=== PATIENT | male | born 1990 | race Caucasian/White ===

== ENCOUNTER 2016-11-27 18:20 | Emergency (ER) | payer BC, SELFPAY ==
[2016-11-27] MEDS ORDERED: LORazepam 2 MG/ML MDV ONE (18:31)
[2016-11-27 18:52] LABS: CHLORIDE,CL 102 mmol/L (98-107); SODIUM,NA 139 mmol/L (136-145)
--- NOTE | 2016-11-27 19:16 | EDM.PDOC ---
ED HPI SEIZURE COMPLAINT - General Chief Complaint: Neurological Problem Stated Complaint: seizure activity Time Seen by Provider: 11/27/16 18:31 Source of Information: Reports: EMS, Family History Limitations: Reports: Altered mental status - History of Present Illness INITIAL COMMENTS - FREE TEXT/NARRATIVE: Patient noted by to have generalized tonic/clonic seizure by description. History of one prior seizure a few years ago after alcohol intoxication and sleep deprivation. No recurrence since then per . Not placed on medication for it. Is on medications for bipolar/Schizophrenia. Once patient was arousable he denied any recent changes in medications or supplements. No reported drug use but says she was gone from home to [employer] from yesterday until 4pm this afternoon. She says patient has been clean of Meth for 6 years but she watches him closely to help avoid relapse. She also mentioned that he complained he had not felt well earlier this afternoon and had one episode of emesis. No other problems mentioned by patient to . She thinks first seizure lasted around 5 minutes. Patient turned dusky, jaw clenched. She turned him on his side. She contacted EMS. EMS crew arrived and between arrival to home and subsequently hospital they noted 10 separate seizure-like events. No lower body movement noted with seizures. They described eyelid fluttering, eyes rolling back into head, head turned to side, tight neck/upper back/upper arms during events. Each one lasted around 1 minute. Patient became verbal at one point and could recall his name and 's name but not names of children. He was confused/post-ictal otherwise. No reported incontinence but jeans appeared a little damp when staff cut them off. - Related Data Allergies/ADRs: Allergies Allergy/AdvReac Type Severity Reaction Status Date / Time No Known Allergies Allergy Verified 08/04/16 11:55 Home Meds: Home Meds Thiothixene 10 mg PO BEDTIME 08/19/14 [History] LORazepam [Ativan] 4 mg PO BID #60 tablet 08/20/14 [Rx] LORazepam [Ativan] 6 mg PO BEDTIME #21 tablet 08/20/14 [Rx] Benztropine [Cogentin] 2 mg PO BEDTIME 08/04/16 [History] Ranitidine HCl [Ranitidine] 1 tab PO DAILY 08/04/16 [History] Past Medical History HEENT History: Reports: None Cardiovascular History: Reports: Arrhythmia, Hypertension, Other (see below) Other Cardiovascular History: Unknown type of arrhythmia with sinus arrhythmia by hospital records, or tension secondary to anxiety with no current antihypertensive medications Respiratory History: Reports: None, Croup, Other (see below) Other Respiratory History: Croup as a child Gastrointestinal History: Reports: Bowel obstruction, Gastritis, PUD, Other ( see below). Denies: Helicobacter pylori Other Gastrointestinal History: Small bowel obstruction requiring hospitalization, gastric ulcers at about age 19 with no known previous H. pylori infection Genitourinary History: Reports: Renal calculus, Other (see below) Other Genitourinary History: Right-sided urolithiasis at age 14 with spontaneous passage Musculoskeletal History: Reports: Back pain, chronic, Fracture, Osteoarthritis, Other (see below) Other Musculoskeletal History: Chronic low back pain with no previous injury, proximal phalangeal fracture of digit #5 of the left hand on 06/29/04 Neurological History: Reports: Seizure, Other (see below) Other Neuro History: Grand mal seizure disorder exacerbated by sleep deprivation initially diagnosed in this facility on 08/19/14 with subsequent neurological consultation in [place] by history Psychiatric History: Reports: Addiction, Anxiety, Bipolar, Depression, Schizophrenia, Suicidal ideation, Other (see below). 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 Previous chronic Ultram use with current chronic Ativan use , tobacco addiction, schizoaffective disorder Endocrine/Metabolic History: Reports: Hypothyroidism Hematologic History: Reports: None Immunologic History: Reports: None Oncologic (Cancer) History: Reports: None Dermatologic History: Reports: None - Infectious Disease History Infectious Disease History: Reports: None. Denies: C-difficile, Chicken pox, VRE - Past Surgical History Head Surgeries/Procedures: Reports: None HEENT Surgical History: Reports: Oral surgery, Other (see below) Other HEENT Surgeries/Procedures: [place] teeth extraction at age 12 GI Surgical History: Reports: Bariatric procedure, Cholecystectomy, Hernia, abdominal, Other (see below) Other GI Surgeries/Procedures: Gastric bypass surgery at age 12 on 09/10/02, cholecystectomy concomitant with gastric bypass as above Musculoskeletal Surgical History: Reports: Other (see below) Other Musculoskeletal Surgeries/Procedures:: Tendon repair of digit #4 of the left hand at age 14 - Past Imaging History Past Imaging History: Reports: CAT scan (CT of the head on 08/19/[address] of the head and facial region on 07/29/13, CT of the abdomen and pelvis on 12/03/10), EEG (August 19, 2014 with results not in our records), MRI (MRI of the brain on 09/18/02, MRI of the lumbar region on 02/09/11) - History Comment History Comment: History of argon poisoning from welding? Social & Family History - Family History Cardiac: Reports: CAD, Hypertension, VA, Other (see below) Other Cardiac Family History: Maternal great grandfather with fatal VA in his 70s, maternal uncles x2 with fatal VA in her 40s to 50s, hypertension in paternal grandmother Respiratory: Reports: COPD, Other (see below) Other Respiratory Family Hisory: Paternal great-grandfather with black lung secondary to work in the [employer] : Reports: Renal calculus, Other (see below) Other Family History: Nephrolithiasis in maternal grandfather and mother Musculoskeletal: Reports: Osteoarthritis, Other (see below) Other Musculoskeletal Family History: Mother with osteoarthritis Neurological: Reports: CVA, Seizure, Other (see below) Other Neurological Family History: Sister with grand mal seizures initially at age 19, CVA in maternal great-grandmother and great-grandfather, sister with autism Psychiatric: Reports: Anxiety, Depression, Schizophrenia, Suicide attempt, Other (see below) Other Psychiatric Family History: Anxiety depression disorder in mother, maternal uncle who also has schizophrenia with successful suicide at age 33, maternal grandparents with depression and anxiety Endocrine/Metabolic: Reports: Diabetes, type I, Hypothyroidism, IDDM, Other ( see below) Other Endocrine/Metabolic Family History: Sister with type I IDDM at age 9, maternal grandfather with AODM, mother with hypothyroidism Hematologic: Reports: Anemia, Other (see below) Other Hematologic Family History: Mother with chronic anemia of unknown type Oncologic: Reports: Breast, Leukemia, Skin, Other (see below) Other Oncologic Family History: Breast cancer x3 in maternal grandmother's side , CLL in maternal grandmother in her 70s, maternal aunt with unknown type of skin cancer in her 60s, maternal second cousin with melanoma at age 25 - Tobacco Use Smoking Status *Q: Current Every Day Smoker Years of Tobacco use: 15 Packs/Tins Daily: 1 Used Tobacco, but Quit: No Second Hand Smoke Exposure: Yes - Caffeine Use Caffeine Use: Reports: Soda Caffeine Use Comment: two 20 ounce bottles of Mountain Dew per day - Alcohol Use Days Per Week of Alcohol Use: 2 Number of Drinks Per Day: 2 Total Drinks Per Week: 4 - Recreational Drug Use Recreational Drug Use: Yes Drug Use in Last 12 Months: No Recreational Drug Type: Reports: Marijuana/Hashish (Current use unknown), Methamphetamine (Methamphetamine use for about 6 months in the past) Recreational Drug Use Frequency: Not Used In Over 1 Year (As above) Recreational Drug Last Use: MARIJUANA - Sexual History Sexual History: Reports: Sexually active - Living Situation & Occupation Living situation: Reports: (2011, 2 children), with family Occupation: employed ([employer]) ED ROS GENERAL - Review of Systems Review Of Systems: Unable To Obtain - Physical Exam Exam: See Below Exam Limited By: Altered mental status General Appearance: obtunded Eye Exam: bilateral eye: EOMI, PERRL (slightly increased pupil size noted, around 8-9mm that reacted down to 5-6mm with light) Ears: normal external exam, normal canal, normal TMs Nose: No: no blood, nasal tenderness, nasal deformity, nasal swelling, nasal drainage Throat/Mouth: Normal lips, No airway compromise Head Exam: atraumatic, normocephalic Neck: normal inspection, supple, non-tender, full range of motion. No: lymphadenopathy (L), lymphadenopathy (R) Respiratory/Chest: no respiratory distress, lungs clear, normal breath sounds, no accessory muscle use, chest non-tender Cardiovascular: normal peripheral pulses, regular rate, rhythm, no edema, no murmur GI/Abdominal: normal bowel sounds, soft, non tender, no distention, no abnormal bruit (Male) Exam: Normal inspection Rectal (Males) Exam: Deferred Neuro Exam (Abbreviated): normal reflexes, confused, slow to respond, memory loss recent events, other (Patient initially GCS score of 4. Ultimately became more lucid. Knew he was at [facility]. Knew president. Not able to recall day/month/year) DTR: 2+: bicep (R), bicep (L), patella (R), patella (L) Back Exam: normal inspection Extremities: normal inspection, non-tender, no pedal edema, normal capillary refill Psychiatric: flat affect Skin Exam: Warm, Intact, Normal color, No rash Course - Orders/Labs/Meds Orders: Active Orders 24 hr Category Date Time Status DRUG SCREEN, URINE [URCHEM] Stat Lab 11/27/16 18:32 Uncollected UA W/MICROSCOPIC [URIN] Stat Lab 11/27/16 18:31 Uncollected Labs: Laboratory Tests 11/27/16 11/27/16 11/27/16 Range/Units 18:20 18:20 18:20 WBC 8.8 (4.0-10.2) K/uL RBC 4.74 (4.33-5.41) M/uL Hgb 14.6 (13.1-16.8) g/dL Hct 44.4 (39.0-49.0) % MCV 93.7 (84.0-98.0) fL MCH 30.8 (28.2-33.3) pg MCHC 32.9 (31.7-36.0) g/dL RDW 13.5 (11.2-14.1) % Plt Count 353 H D (150-350) K/uL Neut % (Auto) 75.8 (45.0-80.0) % Lymph % (Auto) 12.8 (10.0-50.0) % [place] % (Auto) 10.1 (2.0-14.0) % Eos % (Auto) 0.8 (0.0-5.0) % Baso % (Auto) 0.5 (0.0-2.0) % Neut # 6.65 (1.40-7.00) K/uL Lymph # 1.12 (0.50-3.50) K/uL [place] # 0.89 (0.00-1.00) K/uL Eos # 0.07 (0.00-0.50) K/uL Baso # 0.04 (0.00-0.20) K/uL Sodium 139 (136-145) mmol/L Potassium 3.9 (3.5-5.1) mmol/L Chloride 102 (98-107) mmol/L Carbon Dioxide 21.9 (21.0-32.0) mmol/L BUN 5 L (7-18) mg/dL Creatinine 0.80 (0.51-1.17) mg/dL Est Cr Clr Drug Dosing TNP Estimated GFR (MDRD) > 60 mL/min Glucose 133 H (74-106) mg/dL Lactic Acid 5.3 H (0.4-2.0) mmol/L Calcium 9.1 (8.5-10.1) mg/dL Total Bilirubin 0.7 (0.2-1.0) mg/dL AST 17 (15-37) U/L ALT 23 (12-78) U/L Alkaline Phosphatase 77 (46-116) IU/L Total Protein 7.3 (6.4-8.2) g/dL Albumin 4.0 (3.4-5.0) g/dL Ethyl Alcohol 0.001 (0.000-0.080) g/dL Meds: Medications Discontinued Medications Generic Name Dose Route Start Last Admin Trade Name Anel PRN Reason Stop Dose Admin Lorazepam Confirm 11/27/16 18:31 11/27/16 18:33 Ativan Administered 11/27/16 18:32 2 mg Dose Administration 2 mg .ROUTE .STK-MED ONE - Re-Assessments/Exams Free Text/Narrative Re-Assessment/Exam: 11/27/16 19:20 CBC/ETOH/Chem/Lactic Acid ordered. Lactic Acid elevated at 5. Unable to obtain UA even with [place] attempt. IV NS bolus ordered. Ativan 2mg given. Patient appeared to improve within 5-10 minutes of Ativan. He knew he was in [place] [facility] but was still somewhat confused. He did not recall any change in routine/health/meds/supplements when questioned at this point. Denied any illicit drug use. Denied pain or discomfort. Vital signs stable. Appeared comfortable. No additional seizure activity noted during rest of stay. At this point in time [facility] contacted and they accepted the patient for additional workup. Patient was transferred prior to obtaining UA for drug screen. Another patient in the ER was also in need of transfer which meant a three+ hour delay in transferring this patient for additional evaluation by Neurology given his prolonged complex seizure course if we waited until the crew returned from the other transfer. This patient was felt to have higher priority for higher level of care and we wished for him to be transferred first. [facility] agreed with this and accepted the patient. Departure - Departure Time of Disposition: 19:15 Disposition: DC/Tfer to Acute Hospital 02 Clinical Impression: Seizure disorder Forms: ED Department Discharge - My Orders Last 24 Hours: My Active Orders 11/27/16 18:31 UA W/MICROSCOPIC [URIN] Stat 11/27/16 18:32 DRUG SCREEN, URINE [URCHEM] Stat - Assessment/Plan Last 24 Hours: My Active Orders 11/27/16 18:31 UA W/MICROSCOPIC [URIN] Stat 11/27/16 18:32 DRUG SCREEN, URINE [URCHEM] Stat
== END 2016-11-27 19:12 ==
LOC: LL.ED 18:20
DX: G40.909 Epilepsy, unspecified, not intractable, without status epilepticus (principal); E03.9 Hypothyroidism, unspecified; I10 Essential (primary) hypertension; F17.210 Nicotine dependence, cigarettes, uncomplicated; Z79.899 Other long term (current) drug therapy
CPT/HCPCS: 36415; 80053; 83605; 85025; 96361; 96374; 99285; G0480; J2060

== ENCOUNTER 2016-12-03 15:22 | Emergency (ER) | payer BC, SELFPAY ==
[2016-12-03 15:25] VITALS: BP 138/101
[2016-12-03] MEDS ORDERED: predniSONE 20 MG Tab PO ONE (16:07)
[2016-12-03] MEDS ORDERED: methylPREDNISolone Sodium Succinate 125 MG/2 ML SDV IM ONE (16:07)
[2016-12-03] MEDS ORDERED: Ketorolac 60 MG/2 ML SDV IM ONE (16:13)
--- NOTE | 2016-12-03 16:13 | EDM.PDOC ---
ED HPI LOWER BACK PAIN/INJURY - General Chief Complaint: Back Pain or Injury Stated Complaint: back pain Time Seen by Provider: 12/03/16 15:57 Source of Information: Reports: Patient History Limitations: Reports: No limitations - History of Present Illness INITIAL COMMENTS - FREE TEXT/NARRATIVE: Patient complaining of mid/lower back pain. Midline. Does not favor one side versus another. Says it has been present since he was seen for seizures and sent to [facility]. Refer to chart for seizure-related visit from 11/27. Says [facility] gave him Phillips for the pain and it took edge off of it, but still uncomfortable. Also says he was never given a reason for his seizure activity and only had his dose of Ativan increased. Reports he was told to follow up with his primary but no neurology follow up. Patient gives history of being on Ativan for seizures only. He reports only having one single episode of seizures prior to this last one, but is on an extremely large daily dose of the medication per recommendation of a neurologist in the past. He feels that the back pain was triggered by the seizure. Needs work excuse for [employer]. - Related Data Allergies/ADRs: Allergies Allergy/AdvReac Type Severity Reaction Status Date / Time No Known Allergies Allergy Verified 08/04/16 11:55 Home Meds: Home Meds Thiothixene 10 mg PO BEDTIME 08/19/14 [History] LORazepam [Ativan] 4 mg PO BID #60 tablet 08/20/14 [Rx] LORazepam [Ativan] 6 mg PO BEDTIME #21 tablet 08/20/14 [Rx] Benztropine [Cogentin] 2 mg PO BEDTIME 08/04/16 [History] Ranitidine HCl [Ranitidine] 1 tab PO DAILY 08/04/16 [History] Past Medical History HEENT History: Reports: None Cardiovascular History: Reports: Arrhythmia, Hypertension, Other (see below) Other Cardiovascular History: Unknown type of arrhythmia with sinus arrhythmia by hospital records, or tension secondary to anxiety with no current antihypertensive medications Respiratory History: Reports: None, Croup, Other (see below) Other Respiratory History: Croup as a child Gastrointestinal History: Reports: Bowel obstruction, Gastritis, PUD, Other ( see below) Other Gastrointestinal History: Small bowel obstruction requiring hospitalization, gastric ulcers at about age 19 with no known previous H. pylori infection Genitourinary History: Reports: Renal calculus, Other (see below) Other Genitourinary History: Right-sided urolithiasis at age 14 with spontaneous passage Musculoskeletal History: Reports: Back pain, chronic, Fracture, Osteoarthritis, Other (see below) Other Musculoskeletal History: Chronic low back pain with no previous injury, proximal phalangeal fracture of digit #5 of the left hand on 06/29/04 Neurological History: Reports: Seizure, Other (see below) Other Neuro History: Grand mal seizure disorder exacerbated by sleep deprivation initially diagnosed in this facility on 08/19/14 with subsequent neurological consultation in [place] by history Psychiatric History: Reports: Addiction (Meth), Anxiety, Bipolar, Depression, Schizophrenia, Suicidal ideation, Other (see below) Other Psychiatric History: Alcohol and illicit drug addiction and use with no previous treatment. Previous chronic Ultram use with current chronic Ativan use , tobacco addiction, schizoaffective disorder Endocrine/Metabolic History: Reports: Hypothyroidism Hematologic History: Reports: None Immunologic History: Reports: None Oncologic (Cancer) History: Reports: None Dermatologic History: Reports: None - Infectious Disease History Infectious Disease History: Reports: None. Denies: C-difficile, Chicken pox, VRE - Past Surgical History Head Surgeries/Procedures: Reports: None HEENT Surgical History: Reports: Oral surgery, Other (see below) Other HEENT Surgeries/Procedures: [place] teeth extraction at age 12 GI Surgical History: Reports: Bariatric procedure, Cholecystectomy, Hernia, abdominal, Other (see below) Other GI Surgeries/Procedures: Gastric bypass surgery at age 12 on 09/10/02, cholecystectomy concomitant with gastric bypass as above Musculoskeletal Surgical History: Reports: Other (see below) Other Musculoskeletal Surgeries/Procedures:: Tendon repair of digit #4 of the left hand at age 14 - Past Imaging History Past Imaging History: Reports: CAT scan (CT of the head on 08/19/[address] of the head and facial region on 07/29/13, CT of the abdomen and pelvis on 12/03/10), EEG (August 19, 2014 with results not in our records), MRI (MRI of the brain on 09/18/02, MRI of the lumbar region on 02/09/11) - History Comment History Comment: History of argon poisoning from welding? Social & Family History - Family History Cardiac: Reports: CAD, Hypertension, TN, Other (see below) Other Cardiac Family History: Maternal great grandfather with fatal TN in his 70s, maternal uncles x2 with fatal TN in her 40s to 50s, hypertension in paternal grandmother Respiratory: Reports: COPD, Other (see below) Other Respiratory Family Hisory: Paternal great-grandfather with black lung secondary to work in the [employer] : Reports: Renal calculus, Other (see below) Other Family History: Nephrolithiasis in maternal grandfather and mother Musculoskeletal: Reports: Osteoarthritis, Other (see below) Other Musculoskeletal Family History: Mother with osteoarthritis Neurological: Reports: CVA, Seizure, Other (see below) Other Neurological Family History: Sister with grand mal seizures initially at age 19, CVA in maternal great-grandmother and great-grandfather, sister with autism Psychiatric: Reports: Anxiety, Depression, Schizophrenia, Suicide attempt, Other (see below) Other Psychiatric Family History: Anxiety depression disorder in mother, maternal uncle who also has schizophrenia with successful suicide at age 33, maternal grandparents with depression and anxiety Endocrine/Metabolic: Reports: Diabetes, type I, Hypothyroidism, IDDM, Other ( see below) Other Endocrine/Metabolic Family History: Sister with type I IDDM at age 9, maternal grandfather with AODM, mother with hypothyroidism Hematologic: Reports: Anemia, Other (see below) Other Hematologic Family History: Mother with chronic anemia of unknown type Oncologic: Reports: Breast, Leukemia, Skin, Other (see below) Other Oncologic Family History: Breast cancer x3 in maternal grandmother's side , CLL in maternal grandmother in her 70s, maternal aunt with unknown type of skin cancer in her 60s, maternal second cousin with melanoma at age 25 - Tobacco Use Smoking Status *Q: Current Every Day Smoker Years of Tobacco use: 15 Packs/Tins Daily: 0.5 Used Tobacco, but Quit: No Second Hand Smoke Exposure: Yes - Caffeine Use Caffeine Use: Reports: Soda Caffeine Use Comment: two 20 ounce bottles of Mountain Dew per day - Alcohol Use Days Per Week of Alcohol Use: 2 Number of Drinks Per Day: 2 Total Drinks Per Week: 4 - Recreational Drug Use Recreational Drug Use: Yes Drug Use in Last 12 Months: No Recreational Drug Type: Reports: Marijuana/Hashish Recreational Drug Use Frequency: Socially Recreational Drug Last Use: MARIJUANA - Sexual History Sexual History: Reports: Sexually active - Living Situation & Occupation Living situation: Reports: (2010, 2 children), with family Occupation: employed ([employer]) ED ROS GENERAL - Review of Systems Review Of Systems: See Below Constitutional: Reports: no symptoms HEENT: Reports: No symptoms Respiratory: Reports: no symptoms Cardiovascular: Reports: No symptoms GI/Abdominal: Reports: No symptoms : Reports: no symptoms Musculoskeletal: Reports: back pain Skin: Reports: no symptoms Neurological: Reports: no symptoms, other (no radiation of pain). Denies: numbness, paresthesia Psychiatric: Reports: No symptoms ED EXAM,LOWER BACK PAIN/INJURY - Physical Exam Exam: See Below Text/Narrative:: Patient noted on camera by nursing staff to have no obvious issues as he walked to the outside door and opened the door to come in. As soon as he came in nursing staff noted change and he started to move slower and appear uncomfortable. Exam Limited By: No limitations General Appearance: alert, WD/WN, no apparent distress, other (holding ice pack on mid back and L-S junction) Eye Exam: bilateral eye: EOMI, PERRL Ears: normal external exam Nose: normal inspection Throat/Mouth: Normal inspection, Normal voice, No airway compromise Head: atraumatic, normocephalic Neck: normal inspection, supple, non-tender, full range of motion Respiratory/Chest: no respiratory distress, lungs clear, normal breath sounds, no accessory muscle use Cardiovascular: no edema, no murmur, tachycardia GI/Abdominal: normal bowel sounds, soft, non tender, no distention Back Exam: normal inspection, other (Patient did not complain of any increased tenderness during palpation of mid/low back. ). No: CVA tenderness (L), CVA tenderness (R), muscle spasm, paraspinal tenderness, vertebral tenderness Extremities: normal inspection, normal range of motion, non-tender, normal capillary refill Neurological: alert, normal mood/affect, normal reflexes, no motor/sensory deficits, oriented x 3, other (Equal strength and tone both upper and lower extremities. ) DTR - Lower Extremities: 2+: knee (R), knee (L) Psychiatric: normal affect, normal mood Skin Exam: Warm, Dry, Intact, Normal color Course - Vital Signs Last Recorded V/S: Last Vital Signs Temp 36.7 C 12/03/16 15:24 Pulse 113 H 12/03/16 15:24 Resp 18 12/03/16 15:24 BP 138/101 H 12/03/16 15:24 Pulse Ox 100 12/03/16 15:24 - Orders/Labs/Meds Orders: Active Orders 24 hr Category Date Time Status DRUG SCREEN, URINE [URCHEM] Stat Lab 12/03/16 15:53 Uncollected UA W/MICROSCOPIC [URIN] Stat Lab 12/03/16 15:53 Uncollected Meds: Medications Discontinued Medications Generic Name Dose Route Start Last Admin Trade Name Anel PRN Reason Stop Dose Admin Ketorolac Tromethamine 60 mg 12/03/16 16:13 12/03/16 16:27 Toradol IM 12/03/16 16:14 60 mg ONETIME ONE Administration Methylprednisolone Sodium Succinate 125 mg 12/03/16 16:07 12/03/16 16:26 Solu-Medrol IM 12/03/16 16:08 Not Given ONETIME ONE Prednisone 40 mg 12/03/16 16:07 12/03/16 16:28 Prednisone PO 12/03/16 16:08 40 mg ONETIME ONE Administration - Re-Assessments/Exams Free Text/Narrative Re-Assessment/Exam: 12/03/16 16:29 UA requested to look for suggestion of kidney stone, UTI and to perform drug screen. While talking to patient he did admit to using Meth last weekend prior to the seizure episode. He says he has not used since but is noted to be tachycardic and have elevated blood pressure. He tells us he will "be dirty" with Meth and THC if we run a drug screen. He did not provide a sample of urine for us during stay in ER. He also denies other drug use. Questioned about withdrawal symptoms given the heart rate and BP. Patient denies withdrawal symptoms. Time spent with patient discussing his drug use. He says he has no problem. No interest in treatment. Again denies withdrawal or active addiction. Suspect based on history and exam that he has possibly used meth recently or is withdrawing from another drug. Patient advised not to drive if using illicit drugs. Cannot fully rule out true back pain component in today's presentation. Will give patient single dose Toradol and Prednisone. No additional prescription medications given. Patient is not candidate for narcotics given the above concerns. Recommended to participate in drug counseling. Departure - Departure Time of Disposition: 16:36 Disposition: Home, Self-Care 01 Condition: good Clinical Impression: Methamphetamine abuse, Drug abuse Back pain Qualifiers: Back pain location: low back pain Chronicity: acute Back pain laterality: midline Sciatica presence: without sciatica Qualified Code(s): M54.5 - Low back pain Instructions: Stimulant Use Disorder-Methamphetamines, Benzodiazepine Withdrawal, Back Pain, Adult, [id number] Referrals: PCP,Unknown [Primary Care Provider] - Forms: ED Department Discharge Additional Instructions: Easy activity, no heavy lifting. OK to take ibuprofen or Aleve or Ibuprofen for pain. Follow up with your clinic as scheduled next week. We cannot help exclude the possibility of urinary cause to your back pain given your choice to not provide us with a urine sample today. As we discussed, we have concerns related to your recent use of Methamphetamine and any other illicit drugs. Meth very likely caused your seizures last week. You should not be using such drugs when you are on such high doses of Ativan. You should not be mixing Meth or other illicit drugs with your current medications. You should not be driving if using illicit drugs. Recommend discussing treatment options with your provider next week. - My Orders Last 24 Hours: My Active Orders 12/03/16 15:53 DRUG SCREEN, URINE [URCHEM] Stat UA W/MICROSCOPIC [URIN] Stat - Assessment/Plan Last 24 Hours: My Active Orders 12/03/16 15:53 DRUG SCREEN, URINE [URCHEM] Stat UA W/MICROSCOPIC [URIN] Stat
== END 2016-12-03 16:55 | disposition home or self-care (01) ==
LOC: LL.ED 15:22
DX: M54.5 Low back pain (principal); I10 Essential (primary) hypertension; E03.9 Hypothyroidism, unspecified; Z90.49 Acquired absence of other specified parts of digestive tract; F17.210 Nicotine dependence, cigarettes, uncomplicated; F15.10 Other stimulant abuse, uncomplicated; Z79.899 Other long term (current) drug therapy
CPT/HCPCS: 96372; 99283; A9270; J1885